=== PATIENT | female | born 1940 | race African-American/Black ===

== ENCOUNTER → 2016-06-22 | Outpatient (CLI) | payer MEDICARE ==
[2016-06-22 10:14] LABS: Anisocytosis Slight; Basophils % (A) 0 %; CH 24.2; CHCM 29.7; Eosinophils # (A) 0.2 k/uL (0-0.7); Eosinophils % (A) 4 %; HGB 11.6 gm/dL (11.4-16.0); Hypochromasia Marked; Luc # (Auto) 0.14; Luc % (Auto) 3; Lymphocytes # (A) 1.5 k/uL (1.0-4.8); Lymphocytes % (A) 29 %; MCH 24.4 pg (25.0-35.0); MCHC 29.8 g/dL (31.0-37.0); MCV 81.8 fL (80.0-100.0); Mean Platelet Volume 6.2; Monocytes # (A) 0.2 k/uL (0-1.0); Monocytes % (A) 5 %; Neutrophils # (A) 3.2 k/uL (1.3-7.7); Neutrophils % (A) 60 %; RBC 4.77 m/uL (3.80-5.40); WBC 5.3 k/uL (3.8-10.6); WBC (Perox) 5.79
[2016-06-22 10:31] LABS: ALT 21 U/L (9-52); AST 24 U/L (14-36); Alkaline Phosphatase 83 U/L (38-126); Anion Gap 12 mmol/L; Blood Urea Nitrogen 13 mg/dL (7-17); Calcium 9.3 mg/dL (8.4-10.2); Carbon Dioxide 23 mmol/L (22-30); Chloride 105 mmol/L (98-107); Cholesterol 268 mg/dL (<200); Glucose 85 mg/dL (74-99); HDL Cholesterol 90 mg/dL (40-60); Non-African American GFR(MDRD) >60 (>60 ml/min/1.73 sqM); Potassium 4.1 mmol/L (3.5-5.1); Sodium 140 mmol/L (137-145); Total Bilirubin 0.6 mg/dL (0.2-1.3); Total Protein 7.5 g/dL (6.3-8.2); Triglycerides 106 mg/dL (<150)
== END | disposition home or self-care (01) ==
LOC: LABWHC1 09:39
PROVIDERS: ATTEND Internal Medicine
DX: D64.9 Anemia, unspecified (principal); E87.8 Other disorders of electrolyte and fluid balance, not elsewhere classified; R79.9 Abnormal finding of blood chemistry, unspecified; E78.4 Other hyperlipidemia
CPT/HCPCS: 36415; 80053; 80061; 85025

== ENCOUNTER → 2017-11-02 | Outpatient (CLI) | payer MEDICARE ==
[2017-11-02 11:00] LABS: Anisocytosis Slight; HCT 38.7 % (34.0-46.0); HGB 11.9 gm/dL (11.4-16.0); Hypochromasia Marked; MCH 24.4 pg (25.0-35.0); MCHC 30.7 g/dL (31.0-37.0); MCV 79.6 fL (80.0-100.0); Mean Platelet Volume 6.6; Microcytosis Slight; Platelet Count 264 k/uL (150-450); RBC 4.87 m/uL (3.80-5.40); RDW 17.1 % (11.5-15.5); WBC 5.8 k/uL (3.8-10.6)
[2017-11-02 11:51] LABS: Anion Gap 9 mmol/L; Blood Urea Nitrogen 15 mg/dL (7-17); Carbon Dioxide 26 mmol/L (22-30); Chloride 103 mmol/L (98-107); Cholesterol 253 mg/dL (<200); Glucose 84 mg/dL (74-99); HDL Cholesterol 90 mg/dL (40-60); LDL Cholesterol,Calculated 142 mg/dL (0-99); Potassium 4.6 mmol/L (3.5-5.1); Sodium 138 mmol/L (137-145); Triglycerides 105 mg/dL (<150)
== END | disposition home or self-care (01) ==
LOC: LABWHC1 10:04
PROVIDERS: ATTEND Internal Medicine
DX: E78.5 Hyperlipidemia, unspecified (principal); E87.8 Other disorders of electrolyte and fluid balance, not elsewhere classified; D64.9 Anemia, unspecified
CPT/HCPCS: 36415; 80048; 80061; 85027

== ENCOUNTER 2019-04-02 12:29 | Emergency (ER) | payer MEDICARE ==
[2019-04-02] MEDS ORDERED: KETOROLAC 30 MG/ML 1 ML VIAL IVP STA ×2 (13:09→14:36)
[2019-04-02] MEDS ORDERED: DIAZEPAM 5 MG/ML 2 ML INJ IVP STA (13:10)
--- NOTE | 2019-04-02 13:12 | ED ---
General Adult HPI - General Chief complaint: Neck Pain/Injury Stated complaint: Neck and shoulder spasms Time Seen by Provider: 04/02/19 12:37 Source: patient, RN notes reviewed Mode of arrival: ambulatory Limitations: no limitations - History of Present Illness Initial comments: 79-year-old female presenting for evaluation of bilateral shoulder pain. Patient has had similar symptoms in the past which resolved with anti- inflammatories. She reports mild associated occipital headache which is resolved at this time. Pain is been bilateral although it seems to be worse on the right. No fever or chills. No central chest pain. No abdominal pain. No vomiting or diarrhea. No cough or fever. She reports pain worse with movement in the right neck and shoulder. She has taken Tylenol for her pain with minimal improvement. - Related Data Home Medications Medication Instructions Recorded Confirmed Albuterol Sulfate [Proair Hfa] 1 - 2 puff INHALATION RT-Q6H PRN 04/03/16 04/03/16 Ascorbic Acid [Vitamin C] 1,000 mg PO DAILY 04/03/16 04/03/16 Cyclobenzaprine HCl 5 mg PO BID PRN 04/03/16 04/03/16 Fluticasone/Salmeterol [Advair 1 puff INHALATION RT-BID PRN 04/03/16 04/03/16 100-50 Diskus] HYDROcodone/APAP 5-325MG [[place] 1 tab PO Q6HR PRN 04/03/16 04/03/16 5-325] Indapamide [Lozol] 2.5 mg PO DAILY PRN 04/03/16 04/03/16 Magnesium 200 mg PO DAILY 04/03/16 04/03/16 Multivit-Min/FA/Lycopen/Lutein 1 tab PO DAILY 04/03/16 04/03/16 [Centrum Silver Tablet] [place]-3 Fatty Acids [[place]-3] 1,000 mg PO DAILY 04/03/16 04/03/16 Previous Rx's Medication Instructions Recorded predniSONE 30 mg PO DAILY #7 tab 04/02/19 Allergies Allergy/AdvReac Type Severity Reaction Status Date / Time aspirin Allergy Wheezing Verified 04/03/16 04:25 Review of Systems ROS Statement: Those systems with pertinent positive or pertinent negative responses have been documented in the HPI. ROS Other: All systems not noted in ROS Statement are negative. Past Medical History Past Medical History: Asthma, Heart Failure, Hyperlipidemia, Hypertension History of Any Multi-Drug Resistant Organisms: None Reported Past Surgical History: Hernia Repair, Hysterectomy, Tonsillectomy Past Psychological History: No Psychological Hx Reported Smoking Status: Never smoker Past Alcohol Use History: None Reported Past Drug Use History: None Reported General Exam Limitations: no limitations General appearance: alert, in no apparent distress Head exam: Present: atraumatic, normocephalic Eye exam: Present: normal appearance, PERRL, EOMI ENT exam: Present: normal exam Neck exam: Present: tenderness, full ROM (Decreased range of motion, right trapezius and cervical paraspinal muscles) Respiratory exam: Present: normal lung sounds bilaterally. Absent: respiratory distress, wheezes Cardiovascular Exam: Present: regular rate, normal rhythm GI/Abdominal exam: Present: soft. Absent: distended, tenderness, guarding Extremities exam: Present: normal inspection, full ROM, other (Distal pulses intact, 2+ and symmetric) Back exam: Present: normal inspection, full ROM. Absent: tenderness Neurological exam: Present: alert, oriented X3, CN II-XII intact. Absent: motor sensory deficit Psychiatric exam: Present: normal affect, normal mood Skin exam: Present: warm, dry, intact. Absent: cyanosis, diaphoretic Course Vital Signs 04/02/19 04/02/19 12:54 14:51 Temperature 97.4 F L Pulse Rate 83 70 Respiratory 19 18 Rate Blood Pressure 122/78 135/86 O2 Sat by Pulse 98 98 Oximetry EKG Findings - EKG Comments: EKG Findings:: EKG: Normal sinus rhythm, rate of 74, UT interval 140, QRS duration 82, QTC 448, no ST segment elevation. Medical Decision Making - Medical Decision Making 79-year-old female presenting with headache and bilateral shoulder pain. Headache is resolved at the time my evaluation. Symptoms have been present for approximately 5 days. Workup is initiated for both inflammatory as well as atypical chest pain workup. She has normal CBC, normal CMP, negative troponin. She has a C-spine which shows diffuse degenerative she's, no acute process. She has an ESR of 87 which is significantly elevated. This is discussed with on-call rheumatology, concern for Rhinitis and Polymyalgia Rheumatica. Recommends Oral Steroids and Outpatient Follow-Up. Patient Has No Vision Changes, No Current Headache. Findings Are Consistent with Polymyalgia Rheumatica. - Lab Data Result diagrams: 04/02/19 13:10 04/02/19 13:10 Lab Results 04/02/19 04/02/19 04/02/19 Range/Units 13:10 13:10 13:10 WBC 9.2 (3.8-10.6) k/uL RBC 4.82 (3.80-5.40) m/uL Hgb 11.6 (11.4-16.0) gm/dL Hct 36.4 (34.0-46.0) % MCV 75.5 L (80.0-100.0) fL MCH 24.0 L (25.0-35.0) pg MCHC 31.8 (31.0-37.0) g/dL RDW 16.1 H (11.5-15.5) % Plt Count 318 (150-450) k/uL Neutrophils % 69 % Lymphocytes % 18 % Monocytes % 5 % Eosinophils % 4 % Basophils % 0 % Neutrophils # 6.4 (1.3-7.7) k/uL Lymphocytes # 1.7 (1.0-4.8) k/uL Monocytes # 0.5 (0-1.0) k/uL Eosinophils # 0.4 (0-0.7) k/uL Basophils # 0.0 (0-0.2) k/uL Anisocytosis Slight Microcytosis Slight ESR 87 H (0-20) mm/hr PT 9.9 (9.0-12.0) sec INR 0.9 (<1.2) APTT 24.8 (22.0-30.0) sec Sodium 138 (137-145) mmol/L Potassium 3.3 L (3.5-5.1) mmol/L Chloride 102 (98-107) mmol/L Carbon Dioxide 26 (22-30) mmol/L Anion Gap 10 mmol/L BUN 16 (7-17) mg/dL Creatinine 0.67 (0.52-1.04) mg/dL Est GFR (CKD-EPI)AfAm >90 (>60 ml/min/1.73 sqM) Est GFR (CKD-EPI)NonAf 83 (>60 ml/min/1.73 sqM) Glucose 113 H (74-99) mg/dL Calcium 9.8 (8.4-10.2) mg/dL Magnesium 1.5 L (1.6-2.3) mg/dL Total Bilirubin 0.3 (0.2-1.3) mg/dL AST 32 (14-36) U/L ALT 26 (9-52) U/L Alkaline Phosphatase 92 (38-126) U/L Troponin I (0.000-0.034) ng/mL Total Protein 8.0 (6.3-8.2) g/dL Albumin 4.3 (3.5-5.0) g/dL 04/02/19 Range/Units 13:10 WBC (3.8-10.6) k/uL RBC (3.80-5.40) m/uL Hgb (11.4-16.0) gm/dL Hct (34.0-46.0) % MCV (80.0-100.0) fL MCH (25.0-35.0) pg MCHC (31.0-37.0) g/dL RDW (11.5-15.5) % Plt Count (150-450) k/uL Neutrophils % % Lymphocytes % % Monocytes % % Eosinophils % % Basophils % % Neutrophils # (1.3-7.7) k/uL Lymphocytes # (1.0-4.8) k/uL Monocytes # (0-1.0) k/uL Eosinophils # (0-0.7) k/uL Basophils # (0-0.2) k/uL Anisocytosis Microcytosis ESR (0-20) mm/hr PT (9.0-12.0) sec INR (<1.2) APTT (22.0-30.0) sec Sodium (137-145) mmol/L Potassium (3.5-5.1) mmol/L Chloride (98-107) mmol/L Carbon Dioxide (22-30) mmol/L Anion Gap mmol/L BUN (7-17) mg/dL Creatinine (0.52-1.04) mg/dL Est GFR (CKD-EPI)AfAm (>60 ml/min/1.73 sqM) Est GFR (CKD-EPI)NonAf (>60 ml/min/1.73 sqM) Glucose (74-99) mg/dL Calcium (8.4-10.2) mg/dL Magnesium (1.6-2.3) mg/dL Total Bilirubin (0.2-1.3) mg/dL AST (14-36) U/L ALT (9-52) U/L Alkaline Phosphatase (38-126) U/L Troponin I <0.012 (0.000-0.034) ng/mL Total Protein (6.3-8.2) g/dL Albumin (3.5-5.0) g/dL Disposition Clinical Impression: Polymyalgia rheumatica Disposition: HOME SELF-CARE Condition: Fair Instructions (If sedation given, give patient instructions): Polymyalgia Rheumatica (ED) Prescriptions: predniSONE 30 mg PO DAILY #7 tab Is patient prescribed a controlled substance at d/c from ED?: No Referrals: None,Stated [Primary Care Provider] - 1-2 days Freeman Bolden MD [STAFF PHYSICIAN] - 1-2 days Gloria Greenberg MD [REFERRING] - 1-2 days Ivonne Swann MD [STAFF PHYSICIAN] - 1-2 days Xochilt Gonsalves MD [STAFF PHYSICIAN] - 1-2 days Time of Disposition: 15:21
[2019-04-02 13:32] LABS: Anisocytosis Slight; Basophils % (A) 0 %; Eosinophils # (A) 0.4 k/uL (0-0.7); Eosinophils % (A) 4 %; HCT 36.4 % (34.0-46.0); HGB 11.6 gm/dL (11.4-16.0); Lymphocytes # (A) 1.7 k/uL (1.0-4.8); Lymphocytes % (A) 18 %; MCHC 31.8 g/dL (31.0-37.0); MCV 75.5 fL (80.0-100.0); Mean Platelet Volume 5.9; Microcytosis Slight; Monocytes # (A) 0.5 k/uL (0-1.0); Monocytes % (A) 5 %; Neutrophils # (A) 6.4 k/uL (1.3-7.7); Neutrophils % (A) 69 %; Platelet Count 318 k/uL (150-450); RBC 4.82 m/uL (3.80-5.40); RDW 16.1 % (11.5-15.5); WBC 9.2 k/uL (3.8-10.6)
[2019-04-02 13:40] LABS: ALT 26 U/L (9-52); AST 32 U/L (14-36); African American GFR (CKD) >90 (>60 ml/min/1.73 sqM); Albumin 4.3 g/dL (3.5-5.0); Alkaline Phosphatase 92 U/L (38-126); Anion Gap 10 mmol/L; Blood Urea Nitrogen 16 mg/dL (7-17); Calcium 9.8 mg/dL (8.4-10.2); Carbon Dioxide 26 mmol/L (22-30); Chloride 102 mmol/L (98-107); Glucose 113 mg/dL (74-99); Magnesium 1.5 mg/dL (1.6-2.3); Non-African American GFR(CKD) 83 (>60 ml/min/1.73 sqM); Potassium 3.3 mmol/L (3.5-5.1); Sodium 138 mmol/L (137-145); Total Bilirubin 0.3 mg/dL (0.2-1.3)
[2019-04-02 13:46] LABS: INR 0.9 (<1.2); Partial Thromboplastin Time 24.8 sec (22.0-30.0); Prothrombin Time 9.9 sec (9.0-12.0)
[2019-04-02 14:21] LABS: Erythrocyte Sedimentation Rate 87 mm/hr (0-20)
--- NOTE | 2019-04-02 14:33 | CT ---
EXAMINATION TYPE: CT cervical spine wo con DATE OF EXAM: 04/02/2019 COMPARISON: None HISTORY: Neck and shoulder pain with muscle spasms per patient, without injury CT DLP: [address] of the cervical spine was performed with bone and soft tissue window settings submitted . Coronal and sagittal reconstruction is obtained. There is normal alignment and prevertebral soft tissues. C2-3: Within normal limits. C3-4: Severe degenerative disc space narrowing and vacuum disc. Posterior disc bulge with partially e ncapsulating spur resulting in disc endplate complex with effacement of the ventral thecal sac. No ev idence for central stenosis at this time. Mild bilateral foraminal encroachment identified. No disc h erniation. C4-5: Moderate degenerative disc space narrowing. Posterior disc bulge. Mild effacement ventral theca l sac. No evidence for central stenosis or disc herniation. Mild bilateral foraminal encroachment. C5-6: Moderate degenerative disc space narrowing. Posterior disc bulge. Mild effacement ventral theca l sac. No evidence for central stenosis or disc herniation. Mild to moderate bilateral foraminal encr oachment. C6-7:Moderate degenerative disc space narrowing. Posterior disc bulge. Mild effacement ventral thecal sac. No evidence for central stenosis or disc herniation. Mild bilateral foraminal encroachment. C7-T1: Within normal limits. There is no evidence for fracture. Scattered ventral spondylosis. No evidence of malalignment. IMPRESSION: 1. Multilevel lumbar degenerative disc disease with disc bulging and effacement ventral thecal sac ho wever the spinal canal is capacious without evidence for central stenosis or disc herniation. Bilater al foraminal encroachment as outlined above.
[2019-04-02] MEDS ORDERED: methylPREDNISolone SOD SUCCI 125 MG/2 ML VIAL IV STA (14:49)
[2019-04-02 14:52] VITALS: RESP 18
[2019-04-02 15:38] VITALS: BP 153/80; PULSE 75; TEMP 97.3
== END 2019-04-02 15:32 | disposition home or self-care (01) ==
LOC: EC 12:29
DX: M35.3 Polymyalgia rheumatica (principal); M47.812 Spondylosis without myelopathy or radiculopathy, cervical region; R70.0 Elevated erythrocyte sedimentation rate; J45.909 Unspecified asthma, uncomplicated; I11.0 Hypertensive heart disease with heart failure; I50.9 Heart failure, unspecified; Z88.6 Allergy status to analgesic agent; Z79.51 Long term (current) use of inhaled steroids; Z79.899 Other long term (current) drug therapy
CPT/HCPCS: 36415; 93005; 80053; 85652; 83735; 84484; 85025; 85610; 85730; 72125; 99284; 96374; 96375 ×2; 96376; J2930; J3360; J1885

== ENCOUNTER 2019-06-23 22:41 | Emergency (ER) | payer MEDICARE ==
[2019-06-23 22:46] VITALS: TEMP 98.1
[2019-06-23] MEDS ORDERED: KETOROLAC 30 MG/ML 1 ML VIAL IM STA (23:20)
--- NOTE | 2019-06-23 23:47 | XR ---
EXAMINATION TYPE: XR ankle complete LT DATE OF EXAM: 06/23/2019 COMPARISON: NONE HISTORY: Ankle pain TECHNIQUE: 3 views FINDINGS: There is soft tissue swelling around the ankle. There are plantar and Achilles calcaneal sp urs. Ankle mortise is anatomic. I see no fracture. IMPRESSION: Soft tissue swelling. No fracture seen.
--- NOTE | 2019-06-23 23:49 | XR ---
EXAMINATION TYPE: XR foot complete LT DATE OF EXAM: 06/23/2019 COMPARISON: NONE HISTORY: Foot pain TECHNIQUE: 3 views FINDINGS: There is plantar calcaneal spurring. Metatarsals are intact. I see no fracture nor dislocat ion. There are no erosions. There is spurring at the first MP joint. IMPRESSION: Degenerative changes. No fracture seen.
[2019-06-24] MEDS ORDERED: ACET/COD 300 MG/30 MG STARTER PACK 6 TAB BTL PO STA (00:12)
--- NOTE | 2019-06-24 00:12 | ED ---
Lower Extremity Injury HPI - General Chief Complaint: Extremity Injury, Lower Stated Complaint: L Foot Pain Time Seen by Provider: 06/23/19 22:48 Source: patient Mode of arrival: wheelchair Limitations: no limitations - History of Present Illness Initial Comments: 79-year-old female patient presents to the emergency department today for evaluation of left foot pain. Patient states that for the last few days she has been having pain to the braxton after an injury from her grandchild. States that tonight she started to have pain in the dorsal aspect of the left foot. Patient states they have foot is somewhat swollen. She denies any injury to the foot specifically. She denies any numbness or tingling. Denies any fever or chills. States she is working with a spa manager for her arthritis, she is currently on a tapering dose of prednisone she just switched to the 0.5 tablet dosing amount when the pain started. States she did take 2 Tylenol earlier which did seem to help somewhat. She denies any other areas of pain or injury. Patient denies any headache, neck pain, back pain, chest pain, shortness of breath, dizziness, weakness, abdominal pain, nausea, vomiting, or difficulties with bowel movements or urination. - Related Data Home Medications Medication Instructions Recorded Confirmed Albuterol Sulfate [Proair Hfa] 1 - 2 puff INHALATION RT-Q6H PRN 04/03/16 04/03/16 Ascorbic Acid [Vitamin C] 1,000 mg PO DAILY 04/03/16 04/03/16 Cyclobenzaprine HCl 5 mg PO BID PRN 04/03/16 04/03/16 Fluticasone/Salmeterol [Advair 1 puff INHALATION RT-BID PRN 04/03/16 04/03/16 100-50 Diskus] HYDROcodone/APAP 5-325MG [[place] 1 tab PO Q6HR PRN 04/03/16 04/03/16 5-325] Indapamide [Lozol] 2.5 mg PO DAILY PRN 04/03/16 04/03/16 Magnesium 200 mg PO DAILY 04/03/16 04/03/16 Multivit-Min/FA/Lycopen/Lutein 1 tab PO DAILY 04/03/16 04/03/16 [Centrum Silver Tablet] [place]-3 Fatty Acids [[place]-3] 1,000 mg PO DAILY 04/03/16 04/03/16 Previous Rx's Medication Instructions Recorded predniSONE 30 mg PO DAILY #7 tab 04/02/19 predniSONE 30 mg PO DAILY 7 Days #7 tab 04/02/19 Allergies Allergy/AdvReac Type Severity Reaction Status Date / Time aspirin Allergy Wheezing Verified 06/23/19 22:46 Review of Systems ROS Statement: Those systems with pertinent positive or pertinent negative responses have been documented in the HPI. ROS Other: All systems not noted in ROS Statement are negative. Past Medical History Past Medical History: Asthma, Heart Failure, Hyperlipidemia, Hypertension History of Any Multi-Drug Resistant Organisms: None Reported Past Surgical History: Hernia Repair, Hysterectomy, Tonsillectomy Past Psychological History: No Psychological Hx Reported Smoking Status: Never smoker Past Alcohol Use History: None Reported Past Drug Use History: None Reported General Exam Limitations: no limitations General appearance: alert, in no apparent distress, other (This is a well-developed, well-nourished elderly female patient in no acute distress. Vital signs upon presentation are temperature 98.1F, pulse 83, respirations 20, blood pressure 111/75, pulse ox 100% on room air.) Eye exam: Present: normal appearance, PERRL, EOMI. Absent: scleral icterus, conjunctival injection, periorbital swelling ENT exam: Present: normal exam, normal oropharynx, mucous membranes moist Respiratory exam: Present: normal lung sounds bilaterally. Absent: respiratory distress, wheezes, rales, rhonchi, stridor Cardiovascular Exam: Present: regular rate, normal rhythm, normal heart sounds. Absent: systolic murmur, diastolic murmur, rubs, gallop, clicks Extremities exam: Present: normal inspection, full ROM, tenderness (Dorsal aspect of the left foot), normal capillary refill, other (There is some mild soft tissue swelling surrounding left ankle. There is no erythema. There is some tenderness over the dorsal aspect of the left foot more towards the toes. No swelling to this region. No erythema. Skin is warm and dry. Cap refills less than 3 seconds. Pedal and posttibial pulses 2+ and equal bilaterally.). Absent: pedal edema, joint swelling, calf tenderness Neurological exam: Present: alert, oriented X3, CN II-XII intact Psychiatric exam: Present: normal affect, normal mood Skin exam: Present: warm, dry, intact, normal color. Absent: rash Course Vital Signs 06/23/19 22:43 Temperature 98.1 F Pulse Rate 83 Respiratory 20 Rate Blood Pressure 111/75 O2 Sat by Pulse 100 Oximetry Medical Decision Making - Medical Decision Making 79-year-old female patient presents to the emergency department today for evaluation of pain to the dorsal aspect of the left foot. Physical examination reveals mild soft tissue swelling surrounding the ankle. There is no erythema redness indicating infection. She is afebrile. X-rays of the foot and ankle are negative. We did discuss possibility of a sprain. She'll be placed in an Sriram wrap instructed to follow-up with the mission support specialist or her primary care physician for recheck. She does have a walker at home she is instructed to use this to assist with ambulation. Return parameters were discussed in detail. She verbalizes understanding and agrees with this plan. - Radiology Data Radiology results: report reviewed, image reviewed 3 views of the left foot her to breathe. Reviewed in its entirety. Impression by Dr. Trujillo shows degenerative changes. No fracture seen 3 views of the left ankle are obtained. Report was reviewed in its entirety. Impression by Dr. Trujillo shows soft tissue swelling. No fracture seen. Disposition Clinical Impression: Left foot pain Disposition: HOME SELF-CARE Condition: Good Instructions (If sedation given, give patient instructions): Foot Sprain (ED) Additional Instructions: Rest, ice, elevate the left foot. Take medication as needed for pain control. Follow-up with the primary care physician for recheck in 1-2 days. Return to the emergency department immediately for any new, worsening, or concerning symptoms. Is patient prescribed a controlled substance at d/c from ED?: No Referrals: None,Stated [Primary Care Provider] - 1-2 days Time of Disposition: 00:12
[2019-06-24 00:38] VITALS: BP 120/72; PULSE 69; RESP 16
== END 2019-06-24 00:20 | disposition home or self-care (01) ==
LOC: EC 22:41
DX: M79.672 Pain in left foot (principal); J45.909 Unspecified asthma, uncomplicated; I11.0 Hypertensive heart disease with heart failure; I50.9 Heart failure, unspecified; E78.5 Hyperlipidemia, unspecified; Z79.51 Long term (current) use of inhaled steroids; Z79.899 Other long term (current) drug therapy; Z88.6 Allergy status to analgesic agent
CPT/HCPCS: 73610; 73630; 96372; 99283; J1885

== ENCOUNTER 2019-08-26 07:55 | Emergency (ER) | payer MEDICARE ==
[2019-08-26 08:02] VITALS: PULSE 82; RESP 18; TEMP 98.3
[2019-08-26] MEDS ORDERED: ORPHENADRINE 30 MG/ML 2 ML VIAL IVP STA (08:24)
[2019-08-26] MEDS ORDERED: DEXAMETHASONE SOD PHOSPHATE 10 MG/ML 1 ML VIAL IV STA (08:24)
--- NOTE | 2019-08-26 08:24 | ED ---
Back Pain HPI - General Chief Complaint: Back Pain/Injury Stated Complaint: back & neck pain Time Seen by Provider: 08/26/19 08:11 Source: patient, RN notes reviewed, old records reviewed Limitations: physical limitation - History of Present Illness Initial Comments: is an 79-year-old female with history of polymyalgia rheumatica. She presents to the emergency department with worsening neck and upper back pain. She was seen in March for similar complaints emergency department. She does follow with credit control manager Dr. Gonsalves. She's been off her steroids for the past month and a half. Patient states that she has worsening pain with movement. Denies any fall or trauma. Patient states that she has no other significant complaints. - Related Data Home Medications Medication Instructions Recorded Confirmed Albuterol Sulfate [Proair Hfa] 1 - 2 puff INHALATION RT-QID PRN 04/03/16 08/26/19 Indapamide [Lozol] 2.5 mg PO DAILY 04/03/16 08/26/19 [place]-3 Fatty Acids [[place]-3] 1,000 mg PO DAILY 04/03/16 08/26/19 Fluticasone Propion/Salmeterol 1 puff PO RT-BID 08/26/19 08/26/19 [[place] 100-50 Inhub] Multivitamins, Thera [Multivitamin 1 tab PO DAILY 08/26/19 08/26/19 (formulary)] Potassium Chloride [Klor-Con 20] 20 meq PO DAILY 08/26/19 08/26/19 Turmeric Root Extract [Turmeric] 500 mg PO DAILY 08/26/19 08/26/19 amLODIPine [Norvasc] 10 mg PO DAILY 08/26/19 08/26/19 Previous Rx's Medication Instructions Recorded Cyclobenzaprine [Flexeril] 10 mg PO TID #12 tab 08/26/19 predniSONE 10 mg PO DAILY #15 tab 08/26/19 Allergies Allergy/AdvReac Type Severity Reaction Status Date / Time aspirin Allergy Wheezing Verified 08/26/19 08:51 Review of Systems ROS Statement: Those systems with pertinent positive or pertinent negative responses have been documented in the HPI. ROS Other: All systems not noted in ROS Statement are negative. Past Medical History Past Medical History: Asthma, Heart Failure, Hyperlipidemia, Hypertension Additional Past Medical History / Comment(s): back and neck pain History of Any Multi-Drug Resistant Organisms: None Reported Past Surgical History: Hernia Repair, Hysterectomy, Tonsillectomy Past Psychological History: No Psychological Hx Reported Smoking Status: Never smoker Past Alcohol Use History: None Reported Past Drug Use History: None Reported General Exam Limitations: physical limitation General appearance: alert, in no apparent distress Head exam: Present: atraumatic, normocephalic, normal inspection Eye exam: Present: normal appearance, PERRL, EOMI. Absent: scleral icterus, conjunctival injection, periorbital swelling ENT exam: Present: normal exam, mucous membranes moist Neck exam: Present: normal inspection, other (tenderness over latissimus dorsi ). Absent: tenderness, meningismus, lymphadenopathy Respiratory exam: Present: normal lung sounds bilaterally. Absent: respiratory distress, wheezes, rales, rhonchi, stridor Cardiovascular Exam: Present: regular rate, normal rhythm, normal heart sounds. Absent: systolic murmur, diastolic murmur, rubs, gallop, clicks GI/Abdominal exam: Present: soft, normal bowel sounds. Absent: distended, tenderness, guarding, rebound, rigid Extremities exam: Present: normal inspection, full ROM, normal capillary refill. Absent: tenderness, pedal edema, joint swelling, calf tenderness Back exam: Present: normal inspection Neurological exam: Present: alert, oriented X3, CN II-XII intact, normal gait Psychiatric exam: Present: normal affect, normal mood Skin exam: Present: warm, dry, intact, normal color. Absent: rash Course Vital Signs 08/26/19 07:59 Temperature 98.3 F Pulse Rate 82 Respiratory 18 Rate Blood Pressure 119/75 O2 Sat by Pulse 99 Oximetry - Reevaluation(s) Reevaluation #1: 08/26/19 09:33 Patient was reevaluated this time resting comfortably in bed. She reports that she feels less stiff and is feeling somewhat better at this time. I discussed the case with patient's son whom is a physician, and informed of lab results and the Patient should follow-up with her credit control manager. Medical Decision Making - Medical Decision Making 79-year-old female presents emergency room today with complaints of worsening neck muscle spasm upper back pain. Worsening over the past 2 days. Worse with movement. She has a history of polymyalgia rheumatica. At this time Patient elevated CRP. She does follow with Dr. Gonsalves. She was given 80 Decadron and Norflex and reports she is feeling better at this time. CBC was unremarkable and EKG shows no acute changes. Patient is will be started on a short course of steroids anti-inflammatory medication. She is given a Tylenol 3 starter pack. Discussed return parameters and close PCP and rheumatology follow-up. - Lab Data Result diagrams: 08/26/19 08:36 08/26/19 08:36 Lab Results 08/26/19 08/26/19 08/26/19 Range/Units 08:36 08:36 08:36 WBC 10.5 (3.8-10.6) k/uL RBC 4.44 (3.80-5.40) m/uL Hgb 11.2 L (11.4-16.0) gm/dL Hct 34.2 (34.0-46.0) % MCV 77.1 L (80.0-100.0) fL MCH 25.3 (25.0-35.0) pg MCHC 32.8 (31.0-37.0) g/dL RDW 15.5 (11.5-15.5) % Plt Count 296 (150-450) k/uL Neutrophils % 85 % Lymphocytes % 8 % Monocytes % 5 % Eosinophils % 1 % Basophils % 0 % Neutrophils # 9.0 H (1.3-7.7) k/uL Lymphocytes # 0.8 L (1.0-4.8) k/uL Monocytes # 0.5 (0-1.0) k/uL Eosinophils # 0.1 (0-0.7) k/uL Basophils # 0.0 (0-0.2) k/uL Hypochromasia Slight Microcytosis Slight Sodium 134 L (137-145) mmol/L Potassium 3.5 (3.5-5.1) mmol/L Chloride 98 (98-107) mmol/L Carbon Dioxide 26 (22-30) mmol/L Anion Gap 10 mmol/L BUN 16 (7-17) mg/dL Creatinine 0.67 (0.52-1.04) mg/dL Est GFR (CKD-EPI)AfAm >90 (>60 ml/min/1.73 sqM) Est GFR (CKD-EPI)NonAf 83 (>60 ml/min/1.73 sqM) Glucose 111 H (74-99) mg/dL Calcium 9.3 (8.4-10.2) mg/dL Total Bilirubin 0.4 (0.2-1.3) mg/dL AST 23 (14-36) U/L ALT 11 (4-34) U/L Alkaline Phosphatase 76 (38-126) U/L C-Reactive Protein 48.9 H (<10.0) mg/L Total Protein 7.3 (6.3-8.2) g/dL Albumin 3.9 (3.5-5.0) g/dL Urine Color Yellow Urine Appearance Clear (Clear) Urine pH 7.0 (5.0-8.0) Ur Specific [place] 1.013 (1.001-1.035) Urine Protein Negative (Negative) Urine Glucose (UA) Negative (Negative) Urine Ketones Negative (Negative) Urine Blood Negative (Negative) Urine Nitrite Positive H (Negative) Urine Bilirubin Negative (Negative) Urine Urobilinogen <2.0 (<2.0) mg/dL Ur Leukocyte Esterase Trace H (Negative) Urine WBC 5 (0-5) /hpf Ur Squamous Epith Cells <1 (0-4) /hpf Amorphous Sediment Occasional H (None) /hpf Urine Mucus Rare H (None) /hpf - Radiology Data Radiology results: report reviewed EKG performed a 44 shows normal sinus rhythm nonspecific T-wave rebound. Prolonged QT. Ventricular rate of 85 bpm. Normal is 150 ms. Respirations 84 ms. QT QTc is 426/506 most seconds. Disposition Clinical Impression: Thoracic back pain, Neck muscle spasm, Myalgia and myositis Disposition: HOME SELF-CARE Condition: Good Instructions (If sedation given, give patient instructions): Musculoskeletal Pain (ED) Additional Instructions: Patient has a follow-up with your primary care doctor and rheumatology. Take the medications as prescribed. Return to the ED if any alarming signs or symptoms occur. Prescriptions: Cyclobenzaprine [Flexeril] 10 mg PO TID #12 tab predniSONE 10 mg PO DAILY #15 tab Is patient prescribed a controlled substance at d/c from ED?: No Referrals: Nicole Guzman MD [Primary Care Provider] - 1-2 days Time of Disposition: 09:36
[2019-08-26 08:46] LABS: Basophils % (A) 0 %; Eosinophils # (A) 0.1 k/uL (0-0.7); Eosinophils % (A) 1 %; HCT 34.2 % (34.0-46.0); HGB 11.2 gm/dL (11.4-16.0); Hypochromasia Slight; Lymphocytes # (A) 0.8 k/uL (1.0-4.8); Lymphocytes % (A) 8 %; MCH 25.3 pg (25.0-35.0); MCHC 32.8 g/dL (31.0-37.0); MCV 77.1 fL (80.0-100.0); Mean Platelet Volume 6.8; Microcytosis Slight; Monocytes # (A) 0.5 k/uL (0-1.0); Monocytes % (A) 5 %; Neutrophils % (A) 85 %; Platelet Count 296 k/uL (150-450); RBC 4.44 m/uL (3.80-5.40); RDW 15.5 % (11.5-15.5); WBC 10.5 k/uL (3.8-10.6)
[2019-08-26 08:55] LABS: Amorphous Sediment,Urine Occasional /hpf; Appearance,Urine Clear (Clear); Bilirubin,Urine Negative (Negative); Blood,Urine Negative (Negative); Color,Urine Yellow; Glucose,Urine (UA) Negative (Negative); Ketones,Urine Negative (Negative); Leukocyte Esterase,Urine Trace (Negative); Mucus,Urine Rare /hpf; Nitrite,Urine Positive (Negative); Protein,Urine Negative (Negative); Specific Gravity,Urine 1.013 (1.001-1.035); Squamous Epithelial Cell,Urine <1 /hpf (0-4); Urobilinogen,Urine <2.0 mg/dL (<2.0); WBC,Urine 5 /hpf (0-5)
[2019-08-26] MEDS ORDERED: ACET/COD 300 MG/30 MG STARTER PACK 6 TAB BTL PO STA (09:00)
[2019-08-26 09:12] LABS: ALT 11 U/L (4-34); AST 23 U/L (14-36); African American GFR (CKD) >90 (>60 ml/min/1.73 sqM); Albumin 3.9 g/dL (3.5-5.0); Alkaline Phosphatase 76 U/L (38-126); Anion Gap 10 mmol/L; Blood Urea Nitrogen 16 mg/dL (7-17); C Reactive Protein 48.9 mg/L (<10.0); Calcium 9.3 mg/dL (8.4-10.2); Carbon Dioxide 26 mmol/L (22-30); Chloride 98 mmol/L (98-107); Glucose 111 mg/dL (74-99); Non-African American GFR(CKD) 83 (>60 ml/min/1.73 sqM); Potassium 3.5 mmol/L (3.5-5.1); Sodium 134 mmol/L (137-145); Total Bilirubin 0.4 mg/dL (0.2-1.3); Total Protein 7.3 g/dL (6.3-8.2)
[2019-08-26 09:44] LABS: Erythrocyte Sedimentation Rate 99 mm/hr (0-20)
[2019-08-26 09:54] VITALS: BP 118/74
== END 2019-08-26 10:02 | disposition home or self-care (01) ==
LOC: EC 07:55
DX: M54.6 Pain in thoracic spine (principal); M62.838 Other muscle spasm; M60.9 Myositis, unspecified; I11.0 Hypertensive heart disease with heart failure; I50.9 Heart failure, unspecified; J45.909 Unspecified asthma, uncomplicated; Z79.51 Long term (current) use of inhaled steroids; Z79.899 Other long term (current) drug therapy; Z88.6 Allergy status to analgesic agent
CPT/HCPCS: 36415; 93005; 80053; 85652; 85025; 86140; 81001; 87086; 99284; 96374; 96375; J1100; J2360

== ENCOUNTER → 2019-10-15 | Outpatient (CLI) | payer MEDICARE ==
--- NOTE | 2019-10-15 11:20 | XR ---
EXAMINATION TYPE: XR lumbosacral spine min 4V DATE OF EXAM: 10/15/2019 CLINICAL HISTORY: Age-related osteoporosis per order. TECHNIQUE: Frontal, lateral, and oblique images of the lumbar spine are obtained. COMPARISON: None. FINDINGS: Osseous structures are somewhat demineralized. There are 5 lumbar type vertebral bodies id entified. The lumbar spine shows satisfactory alignment without evidence of acute fracture or disloc ation. Moderate disc space narrowing L5-S1 level. Vertebral body heights and disk space heights other harmon are within normal limits. The oblique images appear within normal limits. Numerous coils from ventral wall hernia repair surgery overlie the lower abdomen and pelvis. IMPRESSION: As above.
--- NOTE | 2019-10-15 11:20 | XR ---
EXAMINATION TYPE: XR thoracic spine complete DATE OF EXAM: 10/15/2019 CLINICAL HISTORY: Age-related osteoporosis. TECHNIQUE: Frontal, lateral, and swimmer's view of thoracic spine are obtained. COMPARISON: None. FINDINGS: Demineralization is present. Thoracic spine shows slightly exaggerated thoracic kyphosis wi thout evidence of acute fracture or dislocation. Vertebral body heights are preserved. [id number]-[id number] ate multilevel disc space narrowing. Mild multilevel anterior and lateral spurring. Visualized ribs a re unremarkable bilaterally. IMPRESSION: As above.
== END | disposition home or self-care (01) ==
LOC: RADXRMAIN 10:17
PROVIDERS: ATTEND Physician Assistant
DX: M81.0 Age-related osteoporosis without current pathological fracture (principal)
CPT/HCPCS: 72072; 72110

== ENCOUNTER 2023-01-25 10:08 | Emergency (ER) | payer MEDICARE ==
[2023-01-25] MEDS ORDERED: ACETAMINOPHEN IV (For NPO) 1,000 MG in EMPTY BAG 1 BAG IVPB STA (11:30)
[2023-01-25] MEDS ORDERED: MORPHINE SULFATE 2 MG/ML SYRINGE IVP STA (11:30)
--- NOTE | 2023-01-25 11:33 | ED ---
Fever HPI - General Chief Complaint: Abdominal Pain Stated Complaint: Abd Pain Time Seen by Provider: 01/25/23 11:03 Source: patient, family, EMS, RN notes reviewed Mode of arrival: EMS Limitations: no limitations - History of Present Illness Initial Comments: This is an 82-year-old female who presents to the emergency department for a fever. She is with her son, who states that she had a colectomy at [facility] on 12/19. She has since had a colostomy bag and is residing at [facility] on [facility]. She has had a PICC line receiving total parenteral nutrition, which was started shortly after the surgery. She did at one point have an infection in the PICC line, and seemed to improve after this was removed. However, the patient proceeded to worsen again, and the PICC line had to be replaced. Last night she started to develop a fever. Her son is concerned that the PICC line is the source of infection again. However, her PCP did call the emergency department and stated that the patient was complaining of left lower quadrant pain. Patient is currently sleeping and not very interactive during conversation. She is not answering the question with regards to if she is having abdominal pain or not. Her PCP did request a computed tomography scan of the chest, abdomen, and pelvis as well as septic shock workup. MD Complaint: fever - Related Data Home Medications Medication Instructions Recorded Confirmed Albuterol Sulfate [Proair Hfa] 1 - 2 puff INHALATION RT-QID PRN 04/03/16 01/25/23 Fluticasone Propion/Salmeterol 1 puff PO RT-BID 08/26/19 01/25/23 [Wixela 100-50 Inhub] Acetaminophen Tab [Tylenol] 650 mg PO Q6H PRN 01/25/23 01/25/23 Acetaminophen [Tylenol] 650 mg PO BID 01/25/23 01/25/23 Albuterol Nebulized [Ventolin 2.5 mg INHALATION RT-Q4H PRN 01/25/23 01/25/23 Nebulized] Collagenase [Santyl Ointment] 1 applic TOPICAL DAILY PRN 01/25/23 01/25/23 Collagenase [Santyl Ointment] 1 applic TOPICAL HS 01/25/23 01/25/23 Ensure 237 ml PO DAILY 01/25/23 01/25/23 Ferrous Sulfate Oral Elixir 300 mg PO DAILY 01/25/23 01/25/23 [Feosol Liquid] Fluconazole [Diflucan] 100 mg PO DAILY 01/25/23 01/25/23 Hydrophilic Cream [Triad (Kerodex 1 applic TOPICAL DAILY PRN 01/25/23 01/25/23 geq)] Hydrophilic Cream [Triad (Kerodex 1 applic TOPICAL HS 01/25/23 01/25/23 geq)] Metoprolol Tartrate [Lopressor] 100 mg PO BID 01/25/23 01/25/23 Omeprazole [PriLOSEC] 20 mg PO DAILY@0600 01/25/23 01/25/23 Ondansetron Odt [Zofran Odt] 4 mg PO Q8H PRN 01/25/23 01/25/23 Rivaroxaban [Xarelto] 10 mg PO BID 01/25/23 01/25/23 Tpn 1 dose IV DIRECTED 01/25/23 01/25/23 droNABinol [Marinol] 2.5 mg PO DIRECTED 01/25/23 01/25/23 predniSONE 7.5 mg PO DAILY 01/25/23 01/25/23 traMADol HCl [Ultram] 50 mg PO Q6H PRN 01/25/23 01/25/23 Allergies Allergy/AdvReac Type Severity Reaction Status Date / Time aspirin Allergy Wheezing Verified 01/25/23 17:02 methocarbamol [From Robaxin] Allergy Unknown Verified 01/25/23 17:02 Review of Systems ROS Statement: Those systems with pertinent positive or pertinent negative responses have been documented in the HPI. ROS Other: All systems not noted in ROS Statement are negative. Past Medical History Past Medical History: Asthma, Heart Failure, Hyperlipidemia, Hypertension Additional Past Medical History / Comment(s): back and neck pain History of Any Multi-Drug Resistant Organisms: None Reported Past Surgical History: Hernia Repair, Hysterectomy, Tonsillectomy Past Psychological History: No Psychological Hx Reported Smoking Status: Never smoker Past Alcohol Use History: None Reported Past Drug Use History: None Reported General Exam Limitations: no limitations General appearance: alert, in no apparent distress Head exam: Present: atraumatic, normocephalic, normal inspection Respiratory exam: Present: normal lung sounds bilaterally. Absent: respiratory distress, wheezes, rales, rhonchi, stridor Cardiovascular Exam: Present: regular rate, normal rhythm, normal heart sounds. Absent: systolic murmur, diastolic murmur, rubs, gallop, clicks GI/Abdominal exam: Present: other (Colostomy bag in place. Incision is well- healing. There is no surrounding erythema, induration, or drainage. ) Neurological exam: Present: alert, oriented X3, CN II-XII intact Psychiatric exam: Present: normal affect, normal mood Course Vital Signs 01/25/23 01/25/23 01/25/23 10:43 14:23 19:50 Temperature 100.3 F H 98.7 F Pulse Rate 115 H 116 H 108 H Respiratory 16 20 16 Rate Blood Pressure 128/86 146/80 154/84 O2 Sat by Pulse 98 98 100 Oximetry Medical Decision Making - Medical Decision Making This is an 82-year-old female who presents to the emergency department for a fever and abdominal pain. Was pt. sent in by a medical professional or institution? @ -Dr. Pizarro, the patient's PCP. Did you speak to anyone other than the patient for history? @ -Her son provided the majority of the information. Did you review nursing and triage notes? @ -Yes, and I agree, it is accurate with regards to the patient's symptoms. Were old charts reviewed? @ -No Differential Diagnosis? @ -Differential Fever: Pneumonia, viral URI, endocarditis, myocarditis, pericarditis, otitis, sinusitis, peritonsillar Abscess, retropharyngeal Abscess, epiglottitis, per itonitis, appendicitis, Sveta cystitis, diverticulitis, hepatitis, colitis, UTI, PID, TOA, pyelonephritis, prostatitis, epididymitis, meningitis, encephalitis, pulmonary embolism, CVA, thyroid storm, pancreatitis, adrenal crisis, cavernous sinus thrombosis, this is not meant to be an all-inclusive list. EKG interpreted by me (3pts min.)? @ -EKG interpreted by me demonstrating the following: Sinus tachycardia. Ventricular rate 116 bpm, OH interval 121 ms, QRS duration 76 ms, QTC 377 ms. X-rays interpreted by me (1pt min.)? @ -X-ray of the left humerus obtained. My interpretation identifies no evid ence of subcutaneous gas formation. CT interpreted by me (1pt min.)? @ -CT scan of the chest/abd/pelvis obtained. My interpretation identifies no evidence of free air. U/S interpreted by me (1pt. min.)? @ -Not obtained What testing was considered but not performed? (CT, X-rays, U/S, labs)? Why? @ -None What meds were considered but not given? Why? @ -None Did you discuss the management of the patient with other professionals? @ -Yes, Dr. Mesa, on-call general surgery. He reviewed the patient's CT scan and gallbladder ultrasound himself. He is concerned about gallbladder inflammation. While it is likely unrelated to the recent colectomy, given the patient's recent surgery, he is not comfortable taking the case on himself and requested transfer back to [facility]. ED attending, Dr. Goncalves, spoke with Dr. Nagy at [facility], who is agreeable to transfer. Did you reconcile home meds? @ -No Was smoking cessation discussed for >3mins.? @ -No Was critical care preformed (if so, how long)? @ -No Were there social determinants of health that impacted care today? How? (Homelessness, low income, unemployed, alcoholism, drug addiction, transportat ion, low edu. Level, literacy, decrease access to med. care, penitentiary, rehab)? @ -No Was there de-escalation of care discussed even if they declined? (Discuss DNR or withdrawal of care, Hospice)? @ -No What co-morbidities impacted this encounter? (DM, HTN, Smoking, COPD, CAD, Cancer, CVA, Hep., AIDS, mental health diagnosis, sleep apnea, morbid obesity)? @ -Dementia, DVT, HTN Was patient admitted / discharged? @ -Lab work obtained revealing leukocytosis. Patient was febrile on arrival as well as tachycardiac. Given the concern for sepsis and because she does meet SIRS criteria, blood cultures were obtained and she was given a 2 L bolus of IV fluids and started on maintenance IV fluids at 130 mL/hour. Ofirmev was administered for the fever. She was also started on Zosyn. XR of the left humerus obtained as well due to prior PICC line infection. This revealed swelling without other acute process. CT scan of the chest/abdomen/pelvis obtained revealing gallbladder distention. US of the gallbladder was subsequently obtained. This revealed gallbladder hydrops with cholelithiasis. Case discussed with Dr. Mesa, general surgery. He reviewed all of the patient's imaging and is concerned for cholecystitis, especially in light of elevated LFTs. While Dr. Mesa does not necessarily believe this to be related to the recent colectomy, he is uncomfortable managing the patient who had recent surgery elsewhere. Dr. Nagy spoke with ED attending, Dr. Goncalves, and they are agreeable to transfer back to [facility]. This is an ED to ED transfer. Dr. Contreras is the accepting ED physician. Undiagnosed new problem with uncertain prognosis? @ -None Drug Therapy requiring intensive monitoring for toxicity (Heparin, Nitro, Insulin, Cardizem)? @ -None Were any procedures done? @ -None Diagnosis/symptom? @ -SIRS, cholelithiasis Acute, or Chronic, or Acute on Chronic? @ -Acute Uncomplicated (without systemic symptoms) or Complicated (systemic symptoms)? @ -Complicated Side effects of treatment? @ -None Exacerbation, Progression, or Severe Exacerbation] @ -Not applicable Poses a threat to life or bodily function? @ -Yes This case was discussed in detail with the attending ED physician, Dr. Goncalves. Presentation, findings, and treatment plan discussed in detail as well. - Lab Data Result diagrams: 01/25/23 11:19 01/25/23 11:19 Lab Results 01/25/23 01/25/23 01/25/23 Range/Units 11:19 11:19 11:19 WBC 19.2 H (3.8-10.6) k/uL RBC 3.83 (3.80-5.40) m/uL Hgb 11.2 L (11.4-16.0) gm/dL Hct 34.5 (34.0-46.0) % MCV 90.2 (80.0-100.0) fL MCH 29.3 (25.0-35.0) pg MCHC 32.5 (31.0-37.0) g/dL RDW 17.4 H (11.5-15.5) % Plt Count 290 (150-450) k/uL MPV 8.1 Neutrophils % 81 % Lymphocytes % 11 % Monocytes % 5 % Eosinophils % 2 % Basophils % 0 % Neutrophils # 15.5 H (1.3-7.7) k/uL Lymphocytes # 2.1 (1.0-4.8) k/uL Monocytes # 0.9 (0-1.0) k/uL Eosinophils # 0.4 (0-0.7) k/uL Basophils # 0.1 (0-0.2) k/uL Hypochromasia Moderate Anisocytosis Slight ESR 113 H (0-20) mm/hr Sodium 137 (137-145) mmol/L Potassium 4.9 (3.5-5.1) mmol/L Chloride 111 H (98-107) mmol/L Carbon Dioxide 17 L (22-30) mmol/L Anion Gap 9 mmol/L BUN 32 H (7-17) mg/dL Creatinine 0.57 (0.52-1.04) mg/dL Est GFR (CKD-EPI)AfAm >90 (>60 ml/min/1.73 sqM) Est GFR (CKD-EPI)NonAf 86 (>60 ml/min/1.73 sqM) Glucose 113 H (74-99) mg/dL Plasma Lactic Acid Braulio (0.7-2.0) mmol/L Calcium 9.4 (8.4-10.2) mg/dL Total Bilirubin 0.7 (0.2-1.3) mg/dL AST 68 H (14-36) U/L ALT 70 H (4-34) U/L Alkaline Phosphatase 364 H (38-126) U/L C-Reactive Protein 37.2 H (<1.0) mg/dL Total Protein 6.7 (6.3-8.2) g/dL Albumin 2.9 L (3.5-5.0) g/dL Urine Color Yellow Urine Appearance Clear (Clear) Urine pH 5.0 (5.0-8.0) Ur Specific [place] 1.021 (1.001-1.035) Urine Protein Trace H (Negative) Urine Glucose (UA) Negative (Negative) Urine Ketones Negative (Negative) Urine Blood Negative (Negative) Urine Nitrite Negative (Negative) Urine Bilirubin Negative (Negative) Urine Urobilinogen <2.0 (<2.0) mg/dL Ur Leukocyte Esterase Small H (Negative) Urine RBC 1 (0-5) /hpf Urine WBC 3 (0-5) /hpf Ur Squamous Epith Cells <1 (0-4) /hpf Urine Bacteria Rare H (None) /hpf Urine Mucus Rare H (None) /hpf Influenza Type A (PCR) (Not Detectd) Influenza Type B (PCR) (Not Detectd) RSV (PCR) (Not Detectd) SARS-CoV-2 (PCR) (Not Detectd) 01/25/23 01/25/23 Range/Units 11:19 17:10 WBC (3.8-10.6) k/uL RBC (3.80-5.40) m/uL Hgb (11.4-16.0) gm/dL Hct (34.0-46.0) % MCV (80.0-100.0) fL MCH (25.0-35.0) pg MCHC (31.0-37.0) g/dL RDW (11.5-15.5) % Plt Count (150-450) k/uL MPV Neutrophils % % Lymphocytes % % Monocytes % % Eosinophils % % Basophils % % Neutrophils # (1.3-7.7) k/uL Lymphocytes # (1.0-4.8) k/uL Monocytes # (0-1.0) k/uL Eosinophils # (0-0.7) k/uL Basophils # (0-0.2) k/uL Hypochromasia Anisocytosis ESR (0-20) mm/hr Sodium (137-145) mmol/L Potassium (3.5-5.1) mmol/L Chloride (98-107) mmol/L Carbon Dioxide (22-30) mmol/L Anion Gap mmol/L BUN (7-17) mg/dL Creatinine (0.52-1.04) mg/dL Est GFR (CKD-EPI)AfAm (>60 ml/min/1.73 sqM) Est GFR (CKD-EPI)NonAf (>60 ml/min/1.73 sqM) Glucose (74-99) mg/dL Plasma Lactic Acid Braulio 1.4 (0.7-2.0) mmol/L Calcium (8.4-10.2) mg/dL Total Bilirubin (0.2-1.3) mg/dL AST (14-36) U/L ALT (4-34) U/L Alkaline Phosphatase (38-126) U/L C-Reactive Protein (<1.0) mg/dL Total Protein (6.3-8.2) g/dL Albumin (3.5-5.0) g/dL Urine Color Urine Appearance (Clear) Urine pH (5.0-8.0) Ur Specific [place] (1.001-1.035) Urine Protein (Negative) Urine Glucose (UA) (Negative) Urine Ketones (Negative) Urine Blood (Negative) Urine Nitrite (Negative) Urine Bilirubin (Negative) Urine Urobilinogen (<2.0) mg/dL Ur Leukocyte Esterase (Negative) Urine RBC (0-5) /hpf Urine WBC (0-5) /hpf Ur Squamous Epith Cells (0-4) /hpf Urine Bacteria (None) /hpf Urine Mucus (None) /hpf Influenza Type A (PCR) Not Detected (Not Detectd) Influenza Type B (PCR) Not Detected (Not Detectd) RSV (PCR) Not Detected (Not Detectd) SARS-CoV-2 (PCR) Not Detected (Not Detectd) - Radiology Data Radiology results: report reviewed, image reviewed Disposition Clinical Impression: SIRS (systemic inflammatory response syndrome), Cholelithiasis Disposition: OTHER INSTITUTION NOT DEFINED Referrals: Jordyn Pizarro MD [Primary Care Provider] - 1-2 days - Out of Hospital Transfer - Req. Specs Out of Hospital Transfer - [facility]ed [facility]
[2023-01-25 11:37] LABS: Anisocytosis Slight; Basophils # (A) 0.1 k/uL (0-0.2); Basophils % (A) 0 %; Eosinophils # (A) 0.4 k/uL (0-0.7); Eosinophils % (A) 2 %; HCT 34.5 % (34.0-46.0); HGB 11.2 gm/dL (11.4-16.0); Hypochromasia Moderate; Lymphocytes # (A) 2.1 k/uL (1.0-4.8); Lymphocytes % (A) 11 %; MCH 29.3 pg (25.0-35.0); MCHC 32.5 g/dL (31.0-37.0); MCV 90.2 fL (80.0-100.0); Mean Platelet Volume 8.1; Monocytes # (A) 0.9 k/uL (0-1.0); Monocytes % (A) 5 %; Neutrophils # (A) 15.5 k/uL (1.3-7.7); Neutrophils % (A) 81 %; Platelet Count 290 k/uL (150-450); RBC 3.83 m/uL (3.80-5.40); RDW 17.4 % (11.5-15.5); WBC 19.2 k/uL (3.8-10.6)
[2023-01-25] MEDS ORDERED: SODIUM CHLORIDE 0.9% 1,000 ML IV SCH (11:45)
[2023-01-25] MEDS: SODIUM CHLORIDE 0.9% 500 ML 500 ML IV SCH ×4 (11:55→15:57)
[2023-01-25 12:21] LABS: ALT 70 U/L (4-34); AST 68 U/L (14-36); African American GFR (CKD) >90 (>60 ml/min/1.73 sqM); Albumin 2.9 g/dL (3.5-5.0); Alkaline Phosphatase 364 U/L (38-126); Anion Gap 9 mmol/L; Blood Urea Nitrogen 32 mg/dL (7-17); Calcium 9.4 mg/dL (8.4-10.2); Carbon Dioxide 17 mmol/L (22-30); Chloride 111 mmol/L (98-107); Glucose 113 mg/dL (74-99); Non-African American GFR(CKD) 86 (>60 ml/min/1.73 sqM); Potassium 4.9 mmol/L (3.5-5.1); Sodium 137 mmol/L (137-145); Total Bilirubin 0.7 mg/dL (0.2-1.3); Total Protein 6.7 g/dL (6.3-8.2)
--- NOTE | 2023-01-25 12:28 | XR ---
EXAMINATION TYPE: XR humerus LT DATE OF EXAM: 01/25/2023 12:21 PM INDICATION: Patient age:Female; 82 years old; Reason for study: Fever with PICC line; PHH. COMPARISON: None TECHNIQUE: The left humerus was examined in AP and lateral projections. FINDINGS: Left PICC line identified. No evidence of acute osseous pathology, joint dislocation. Soft tissue swelling of the arm. Joint space narrowing with subchondral cystic changes and spurring of the left shoulder. Mild AC joint arthropathy. No osseous erosions. The remaining portions of the visuali zed chest are unremarkable. IMPRESSION: 1. No acute osseous pathology. No osseous erosions. 2. Moderate osteophytic changes of the left shoulder. 3. Mild AC joint arthropathy. 4. Soft tissue swelling of the left arm.
[2023-01-25 12:36] LABS: Erythrocyte Sedimentation Rate 113 mm/hr (0-20)
[2023-01-25 13:23] LABS: C Reactive Protein 37.2 mg/dL (<1.0)
--- NOTE | 2023-01-25 14:11 | CT ---
EXAMINATION TYPE: CT ChestAbdPelvis w con CT DLP: 1174.3 mGycm, Automated exposure control for dose reduction was used. DATE OF EXAM: 01/25/2023 1:59 PM COMPARISON: CTA chest 03/04/2016 CLINICAL INDICATION:Female, 82 years old with history of Fever, abdominal pain, recent colectomy; PHH , Fever, abdominal pain, recent colectomy. Technique: Multiple axial images of the chest, abdomen, and pelvis were obtained following the intrav enous administration of 100 mL Isovue-300. Two-dimensional coronal and sagittal reconstructions were obtained. Findings: CHEST: LUNGS/ PLEURA: No pleural effusion, pneumothorax, or focal consolidation. Scattered regions of atelec tasis along the right major fissure. AIRWAY: Patent and unremarkable.. HEART: Size within normal limits. No pericardial effusion. Moderate coronary arterial calcifications. MEDIASTINUM: No evidence of adenopathy. VASCULATURE: No aortic aneurysm. Left PICC line terminates in the superior cavoatrial junction. Athe rosclerotic calcification of the aorta. MUSCULOSKELETAL: No acute osseous abnormalities. SOFT TISSUES/LYMPH NODES: Unremarkable. LOWER NECK: No significant findings. ABDOMEN: ABDOMEN LIVER: Stable lateral right hepatic lobe 2.1 cm cyst. GALLBLADDER AND BILE DUCTS: Mildly distended gallbladder. No biliary duct dilatation. PANCREAS: Unremarkable. SPLEEN: Unremarkable. ADRENAL GLANDS: Unremarkable. KIDNEYS AND URETERS: No evidence of hydronephrosis or renal calculus. The kidneys enhance symmetrical ly. Regions of cortical thinning involving the left kidney from prior injury. Bilateral renal cysts. Largest within the left kidney measures up to 2.4 cm. PELVIS BLADDER: Moderately distended. REPRODUCTIVE: The uterus is surgically absent. ABDOMEN & PELVIS STOMACH AND BOWEL: Small to moderate size hiatal hernia. Right lower quadrant ostomy. Postsurgical ch anges from colectomy. No evidence of bowel obstruction. Calcification left lower quadrant abutting th e anastomotic site. PERITONEUM: No evidence of pneumoperitoneum or free fluid. Stranding identified within the mesentery likely related to postsurgical changes. No organized fluid collection. VASCULATURE: Moderate atherosclerotic calcifications are present throughout the abdominal aorta and i ts branches. No abdominal aortic aneurysm. Pelvic phleboliths. MUSCULOSKELETAL: No acute osseous abnormalities LYMPH NODES: No gross evidence for lymphadenopathy. SOFT TISSUE/ABDOMINAL WALL: Postsurgical of the anterior abdominal wall. No organized fluid collectio n. IMPRESSION: 1. Postsurgical changes from colectomy with right lower quadrant ostomy. No organized fluid collecti on to suggest abscess. 2. Mild distention of the gallbladder. Consider further evaluation with ultrasound if there is dewey rn for acute process. 3. Small to moderate-sized hiatal hernia. 4. No acute thoracic process.
[2023-01-25 14:31] VITALS: TEMP 98.7
[2023-01-25 14:48] LABS: Appearance,Urine Clear (Clear); Bacteria,Urine Rare /hpf; Bilirubin,Urine Negative (Negative); Blood,Urine Negative (Negative); Color,Urine Yellow; Glucose,Urine (UA) Negative (Negative); Ketones,Urine Negative (Negative); Leukocyte Esterase,Urine Small (Negative); Mucus,Urine Rare /hpf; Nitrite,Urine Negative (Negative); Protein,Urine Trace (Negative); RBC,Urine 1 /hpf (0-5); Specific Gravity,Urine 1.021 (1.001-1.035); Squamous Epithelial Cell,Urine <1 /hpf (0-4); Urobilinogen,Urine <2.0 mg/dL (<2.0); WBC,Urine 3 /hpf (0-5)
--- NOTE | 2023-01-25 15:11 | US ---
EXAMINATION TYPE: US gallbladder DATE OF EXAM: 01/25/2023 COMPARISON: CT 2022 CLINICAL INDICATION: Female, 82 years old with history of Gallbladder distention on CT scan; TECHNIQUE: Multiple sonographic images of the right upper quadrant are obtained. FINDINGS: EXAM MEASUREMENTS: Liver Length: 16.2 cm Gallbladder Wall: 0.2 cm CBD: 0.3 cm Right Kidney: 10.5 x 3.8 x 4.6 cm Pancreas: obscured by overlying midline bowel gas Liver: 2.5 x 2.0 x 2.4cm cyst right lobe Gallbladder: hydropic, full of stones Evidence for sonographic Carlin's sign: n/a CBD: visualized portions wnl, limited by overlying bowel gas Right Kidney: 1.2 x 1.2 x 1.1cm cortical cyst Pancreas is obscured by overlying bowel gas. Simple cyst within the right hepatic lobe measuring 2.5 cm. Gallbladder is hydropic and full of gallstones. No wall thickening or pericholecystic fluid ident ified. Visualized portions of the common bile duct within normal limits. Right kidney is unremarkable without evidence of hydronephrosis, nephrolithiasis, solid mass. Simple cortical cyst measuring 1.2 cm identified. IMPRESSION: Hydropic gallbladder which is full gallstones without wall thickening or pericholecystic fluid. No ov ert ultrasound evidence for acute cholecystitis. If there is continued clinical concern, consider [facility] medicine HIDA scan for further evaluation.
[2023-01-25] MEDS ORDERED: PIPERACILLIN-TAZOBACTAM 3.375 GM in SODIUM CHLORIDE 0.9% 100 ML IVPB SCH (16:00)
[2023-01-25 19:58] VITALS: BP 154/84; PULSE 108; RESP 16
== END 2023-01-25 20:44 | disposition other institution (70) ==
LOC: EC 10:08
DX: K80.20 Calculus of gallbladder without cholecystitis without obstruction (principal); K44.9 Diaphragmatic hernia without obstruction or gangrene; R65.10 Systemic inflammatory response syndrome (SIRS) of non-infectious origin without acute organ dysfunction; R00.0 Tachycardia, unspecified; J45.909 Unspecified asthma, uncomplicated; I11.0 Hypertensive heart disease with heart failure; Z79.899 Other long term (current) drug therapy; Z79.51 Long term (current) use of inhaled steroids; Z88.6 Allergy status to analgesic agent; Z88.8 Allergy status to other drugs, medicaments and biological substances; Z20.822 Contact with and (suspected) exposure to COVID-19; Z93.3 Colostomy status; Z79.01 Long term (current) use of anticoagulants; Z90.49 Acquired absence of other specified parts of digestive tract
CPT/HCPCS: 36415; 93005; 80053; 85652; 83605; 85025; 86140; 81001; 87040; 87636; 73060; 76705; 71260; 74177; 99285; 96365; 96367; 96366 ×2; 96375; 96361; J2543; J2270; J0131; Q9967

== ENCOUNTER 2023-02-18 03:57 | Emergency (ER) | payer MEDICARE ==
[2023-02-18 04:26] VITALS: TEMP 98.9
[2023-02-18 04:55] LABS: Anisocytosis Slight; Basophils % (A) 0 %; Eosinophils # (A) 0.6 k/uL (0-0.7); Eosinophils % (A) 4 %; HCT 34.9 % (34.0-46.0); HGB 11.2 gm/dL (11.4-16.0); Hypochromasia Slight; Lymphocytes # (A) 1.6 k/uL (1.0-4.8); Lymphocytes % (A) 12 %; MCH 27.9 pg (25.0-35.0); MCHC 32.2 g/dL (31.0-37.0); MCV 86.7 fL (80.0-100.0); Mean Platelet Volume 8.1; Monocytes # (A) 0.4 k/uL (0-1.0); Monocytes % (A) 3 %; Neutrophils # (A) 11.5 k/uL (1.3-7.7); Neutrophils % (A) 81 %; Platelet Count 271 k/uL (150-450); Poikilocytosis Slight; RBC 4.02 m/uL (3.80-5.40); RDW 18.2 % (11.5-15.5); WBC 14.2 k/uL (3.8-10.6)
[2023-02-18 05:50] LABS: ALT 39 U/L (4-34); AST 31 U/L (14-36); African American GFR (CKD) >90 (>60 ml/min/1.73 sqM); Albumin 3.3 g/dL (3.5-5.0); Alkaline Phosphatase 231 U/L (38-126); Anion Gap 11 mmol/L; Blood Urea Nitrogen 13 mg/dL (7-17); Calcium 9.2 mg/dL (8.4-10.2); Carbon Dioxide 25 mmol/L (22-30); Chloride 97 mmol/L (98-107); Glucose 103 mg/dL (74-99); Lipase 268 U/L (23-300); Non-African American GFR(CKD) >90 (>60 ml/min/1.73 sqM); Potassium 3.6 mmol/L (3.5-5.1); Sodium 133 mmol/L (137-145); Total Bilirubin 0.7 mg/dL (0.2-1.3); Total Protein 6.7 g/dL (6.3-8.2)
[2023-02-18] MEDS ORDERED: PIPERACILLIN-TAZOBACTAM 3.375 GM in SODIUM CHLORIDE 0.9% 100 ML IVPB STA (06:58)
--- NOTE | 2023-02-18 06:59 | ED ---
Abdominal Pain HPI - General Chief Complaint: Abdominal Pain Stated Complaint: Abdominal Pain Time Seen by Provider: 02/18/23 04:05 Source: EMS, Caregiver Mode of arrival: EMS - History of Present Illness Initial Comments: 82-year-old female with past medical history of bowel resection, colostomy, recent PEG tube placement who presents emergency Department with abdominal pain. Patient arrives as a transfer from [facility]. They report that the patient has had pain around her PEG tube site. She has been agitated and pulling at the tube. There is concern for dislodgment. They state that there is been significant leaking of fluid from around the tube. They also have not been getting any residuals. Facility cannot explain exactly how long they feel the tube has been dislodged. She recently had elevation in her heart rate which prompted the ER transfer. Patient arrives and cannot provide many details in regards to her medical history. No reported nausea. No changes in the patient's bowel or bladder habits reported. No fevers. PEG tube was placed at [facility]. She does have extensive history of abdominal surgeries. She also recently had a PICC line infection which subsequently led to the G-tube placement. No other alleviating, precipitating or modifying factors - Related Data Home Medications Medication Instructions Recorded Confirmed Albuterol Sulfate [Proair Hfa] 1 - 2 puff INHALATION RT-QID PRN 04/03/16 01/25/23 Fluticasone Propion/Salmeterol 1 puff PO RT-BID 08/26/19 01/25/23 [Wixela 100-50 Inhub] Acetaminophen Tab [Tylenol] 650 mg PO Q6H PRN 01/25/23 01/25/23 Acetaminophen [Tylenol] 650 mg PO BID 01/25/23 01/25/23 Albuterol Nebulized [Ventolin 2.5 mg INHALATION RT-Q4H PRN 01/25/23 01/25/23 Nebulized] Collagenase [Santyl Ointment] 1 applic TOPICAL DAILY PRN 01/25/23 01/25/23 Collagenase [Santyl Ointment] 1 applic TOPICAL HS 01/25/23 01/25/23 Ensure 237 ml PO DAILY 01/25/23 01/25/23 Ferrous Sulfate Oral Elixir 300 mg PO DAILY 01/25/23 01/25/23 [Feosol Liquid] Fluconazole [Diflucan] 100 mg PO DAILY 01/25/23 01/25/23 Hydrophilic Cream [Triad (Kerodex 1 applic TOPICAL DAILY PRN 01/25/23 01/25/23 geq)] Hydrophilic Cream [Triad (Kerodex 1 applic TOPICAL HS 01/25/23 01/25/23 geq)] Metoprolol Tartrate [Lopressor] 100 mg PO BID 01/25/23 01/25/23 Omeprazole [PriLOSEC] 20 mg PO DAILY@0600 01/25/23 01/25/23 Ondansetron Odt [Zofran Odt] 4 mg PO Q8H PRN 01/25/23 01/25/23 Rivaroxaban [Xarelto] 10 mg PO BID 01/25/23 01/25/23 Tpn 1 dose IV DIRECTED 01/25/23 01/25/23 droNABinol [Marinol] 2.5 mg PO DIRECTED 01/25/23 01/25/23 predniSONE 7.5 mg PO DAILY 01/25/23 01/25/23 traMADol HCl [Ultram] 50 mg PO Q6H PRN 01/25/23 01/25/23 Allergies Allergy/AdvReac Type Severity Reaction Status Date / Time aspirin Allergy Wheezing Verified 02/18/23 04:11 methocarbamol [From Robaxin] Allergy Unknown Verified 02/18/23 04:11 Review of Systems ROS Statement: Those systems with pertinent positive or pertinent negative responses have been documented in the HPI. ROS Other: All systems not noted in ROS Statement are negative. Past Medical History Past Medical History: Asthma, Heart Failure, Hyperlipidemia, Hypertension Additional Past Medical History / Comment(s): back and neck pain History of Any Multi-Drug Resistant Organisms: None Reported Past Surgical History: Hernia Repair, Hysterectomy, Tonsillectomy Past Psychological History: No Psychological Hx Reported Smoking Status: Never smoker Past Alcohol Use History: None Reported Past Drug Use History: None Reported General Exam General appearance: alert, in no apparent distress Head exam: Present: atraumatic, normocephalic, normal inspection ENT exam: Present: mucous membranes dry Neck exam: Present: normal inspection. Absent: tenderness, meningismus, lymphadenopathy Cardiovascular Exam: Present: tachycardia GI/Abdominal exam: Present: tenderness (In the right upper quadrant around the PEG tube site. Some surrounding draining. The surrounding tissue is indurated with fluctuance), other (Colostomy of lower quadrant) Extremities exam: Present: normal inspection, full ROM, normal capillary refill. Absent: tenderness, pedal edema, joint swelling, calf tenderness Neurological exam: Present: alert Psychiatric exam: Present: flat affect Course Vital Signs 02/18/23 02/18/23 02/18/23 04:01 08:37 09:00 Temperature 98.9 F Pulse Rate 121 H 125 H 78 Respiratory 15 18 18 Rate Blood Pressure 118/84 117/91 117/91 O2 Sat by Pulse 97 95 97 Oximetry 02/18/23 02/18/23 02/18/23 09:30 10:00 10:30 Temperature Pulse Rate 76 78 75 Respiratory 16 16 18 Rate Blood Pressure 134/80 130/81 125/73 O2 Sat by Pulse 96 95 95 Oximetry 02/18/23 11:00 Temperature Pulse Rate 74 Respiratory 18 Rate Blood Pressure 118/66 O2 Sat by Pulse 96 Oximetry Medical Decision Making - Medical Decision Making Was pt. sent in by a medical professional or institution (, PA, CARD PROCESSING CLERK, urgent care, hospital, or shelter...) When possible be specific @ -[facility] Did you speak to anyone other than the patient for history (EMS, parent, family, police, friend...)? What history was obtained from this source @ -EMS and son Did you review nursing and triage notes (agree or disagree)? Why? @ -I reviewed and agree with nursing and triage notes Were old charts reviewed (outside hosp., previous admission, EMS record, old EKG, old radiological studies, urgent care reports/EKG's, shelter records)? Report findings @ -Old charts reviewed - last ED with transfer to [facility] Differential Diagnosis (chest pain, altered mental status, abdominal pain women, abdominal pain men, vaginal bleeding, weakness, fever, dyspnea, syncope, headache, dizziness, GI bleed, back pain, seizure, CVA, palpatations, mental health, musculoskeletal)? @ -Differential Abdominal Pain Women: Appendicitis, Cholecystitis, diverticulosis, ischemic bowel, pancreatitis, hepatitis, UTI, gastroenteritis, AAA, incarcerated hernia, bowel obstruction, constipation, inflammatory bowel, hepatitis, peptic ulcer disease, splenic infarction, perforated viscus, vulvitis, ovarian torsion, PID, kidney stone, placenta abruption, this is not meant to be an all-inclusive list EKG interpreted by me (3pts min.). @ -Not done X-rays interpreted by me (1pt min.). @ -None done CT interpreted by me (1pt min.). @ -Yes and demonstrates misplaced peg tube U/S interpreted by me (1pt. min.). @ -None done What testing was considered but not performed or refused? (CT, X-rays, U/S, labs)? Why? @ -None What meds were considered but not given or refused? Why? @ -None Did you discuss the management of the patient with other professionals (professionals i.e. , PA, CARD PROCESSING CLERK, lab, RT, psych nurse, psychotherapist social worker, mason tender, teacher, access control officer, telephonic case manager)? Give summary @ -Spoke with [facility] transfer team Was smoking cessation discussed for >3mins.? @ -No Was critical care preformed (if so, how long)? @ -No Were there social determinants of health that impacted care today? How? (Homelessness, low income, unemployed, alcoholism, drug addiction, transportation, low edu. Level, literacy, decrease access to med. care, halfway, rehab)? @ -Patient resides in rehab Was there de-escalation of care discussed even if they declined (Discuss DNR or withdrawal of care, Hospice)? DNR status @ -No What co-morbidities impacted this encounter? (DM, HTN, Smoking, COPD, CAD, Cancer, CVA, ARF, Chemo, Hep., AIDS, mental health diagnosis, sleep apnea, morbid obesity)? @ -Diverticulitis, protein calorie malnutrition Was patient admitted / discharged? Hospital course, mention meds given and route, prescriptions, significant lab abnormalities, going to OR and other pertinent info. @ -Upon arrival patient is placed in room 16. Thorough history and physical exam was performed. IV access is established and laboratories is her conducted. Patient was given pain and nausea medications. There were traces her condu cted. White count elevated at 14.4. CT is performed and demonstrates dislodged PEG tube. At this time requires evaluation by surgery as PEG tube was recently placed in the past week. Blood culture is obtained and the patient is given Zosyn. Did recommend transfer to [facility] for which the son was agreeable. Did call the transfer line. Awaiting callback. Case will be signed out to Dr. Hughes. Patient eventually accepted by Dr. Wall. Undiagnosed new problem with uncertain prognosis? @ -yes Drug Therapy requiring intensive monitoring for toxicity (Heparin, Nitro, Insulin, Cardizem)? @ -No Were any procedures done? @ -No Diagnosis/symptom? @ -dislodged peg tube, tachycardia, sirs 2/4 with sepsis Acute, or Chronic, or Acute on Chronic? @ -acute Uncomplicated (without systemic symptoms) or Complicated (systemic symptoms)? @ -complicated Side effects of treatment? @ -No Exacerbation, Progression, or Severe Exacerbation? @ -No Poses a threat to life or bodily function? How? (Chest pain, [place], HI, pneumonia, PE, COPD, DKA, ARF, appy, cholecystitis, CVA, Diverticulitis, Homicidal, Suicidal, threat to staff... and all critical care pts) @ -yes - patient possibly septic due to misplaced tube - Lab Data Result diagrams: 02/18/23 04:30 02/18/23 05:08 Lab Results 02/18/23 02/18/23 02/18/23 Range/Units 04:30 04:30 05:08 WBC 14.2 H (3.8-10.6) k/uL RBC 4.02 (3.80-5.40) m/uL Hgb 11.2 L (11.4-16.0) gm/dL Hct 34.9 (34.0-46.0) % MCV 86.7 (80.0-100.0) fL MCH 27.9 (25.0-35.0) pg MCHC 32.2 (31.0-37.0) g/dL RDW 18.2 H (11.5-15.5) % Plt Count 271 (150-450) k/uL MPV 8.1 Neutrophils % 81 % Lymphocytes % 12 % Monocytes % 3 % Eosinophils % 4 % Basophils % 0 % Neutrophils # 11.5 H (1.3-7.7) k/uL Lymphocytes # 1.6 (1.0-4.8) k/uL Monocytes # 0.4 (0-1.0) k/uL Eosinophils # 0.6 (0-0.7) k/uL Basophils # 0.0 (0-0.2) k/uL Hypochromasia Slight Poikilocytosis Slight Anisocytosis Slight Sodium 133 L (137-145) mmol/L Potassium 3.6 (3.5-5.1) mmol/L Chloride 97 L (98-107) mmol/L Carbon Dioxide 25 (22-30) mmol/L Anion Gap 11 mmol/L BUN 13 (7-17) mg/dL Creatinine 0.44 L (0.52-1.04) mg/dL Est GFR (CKD-EPI)AfAm >90 (>60 ml/min/1.73 sqM) Est GFR (CKD-EPI)NonAf >90 (>60 ml/min/1.73 sqM) Glucose 103 H (74-99) mg/dL Plasma Lactic Acid Braulio 1.3 (0.7-2.0) mmol/L Calcium 9.2 (8.4-10.2) mg/dL Total Bilirubin 0.7 (0.2-1.3) mg/dL AST 31 (14-36) U/L ALT 39 H (4-34) U/L Alkaline Phosphatase 231 H (38-126) U/L Total Protein 6.7 (6.3-8.2) g/dL Albumin 3.3 L (3.5-5.0) g/dL Lipase 268 (23-300) U/L Disposition Clinical Impression: SIRS (systemic inflammatory response syndrome), PEG tube malfunction, Abdominal pain Disposition: OTHER INSTITUTION NOT DEFINED Condition: Serious Is patient prescribed a controlled substance at d/c from ED?: No Referrals: Jordyn Pizarro MD [Primary Care Provider] - 1-2 days - Out of Hospital Transfer - Req. Specs Out of Hospital Transfer - Requested Specifics: Other Non-Acute ([facility])
[2023-02-18] MEDS ORDERED: SODIUM CHLORIDE 0.9% 1,000 ML IV SCH (07:00)
[2023-02-18] MEDS ORDERED: METOCLOPRAMIDE 5 MG/ML 2 ML VIAL IVP STA (07:45)
[2023-02-18] MEDS ORDERED: MORPHINE SULFATE 4 MG/ML SYRINGE IVP STA (07:54)
--- NOTE | 2023-02-18 07:59 | CT ---
EXAMINATION TYPE: CT abdomen pelvis w con CT DLP: 635.6 mGycm, Automated exposure control for dose reduction was used. DATE OF EXAM: 02/18/2023 6:19 AM COMPARISON: CT chest abd pelvis 01/25/2023 CLINICAL INDICATION:Female, 82 years old with history of abdominal pain, recent peg; TECHNIQUE: Axial CT of the abdomen and pelvis. Sagittal and coronal reformats were created on a enymotion workstation. Contrast used: No data provided, (none if empty) Oral contrast used: (none if empty) FINDINGS: LOWER CHEST: Mild scarring or atelectasis in the lower lobes. Some linear atelectasis or scar in the right middle lobe. Small patchy ground glass subpleural opacities noted in the right upper lobe. No p leural effusion. The heart is moderately enlarged with moderate coronary arterial calcifications. Mod erate sized hiatal hernia ABDOMEN LIVER: Stable 2.1 cm hypodensity in the right hepatic lobe, likely cyst. GALLBLADDER AND BILE DUCTS: Gallbladder appears somewhat elongated and hydropic, similar to the prior . No definite surrounding acute inflammation. Somewhat wavy/lobular appearance of the gallbladder wal l. No definite calcified gallstones. Biliary tree is nondilated. PANCREAS: Unremarkable. SPLEEN: Unremarkable. ADRENAL GLANDS: Unremarkable. KIDNEYS AND URETERS: Kidneys enhance symmetrically. Stable appearing bilateral renal hypodensities, l ikely cysts. No evidence of hydronephrosis. PELVIS BLADDER: Unremarkable REPRODUCTIVE: Status post hysterectomy. ABDOMEN & PELVIS STOMACH AND BOWEL: Nondilated stomach and small bowel. Right lower quadrant ileostomy again seen with out evidence of obstruction. Changes of subtotal colectomy rectal stump. Postoperative changes/scarri ng in the anterior abdominal wall and mesentery. No evidence of bowel obstruction. PERITONEUM/RETROPERITONEUM: No evidence of pneumoperitoneum or free fluid. VASCULATURE: Diffuse atherosclerotic calcification of the aorta and branches. No evidence of AAA. No high-grade stenosis. MUSCULOSKELETAL: Mild/moderate diffuse degenerative changes of the visualized spine. No evidence of a n acute bony abnormality. LYMPH NODES: No gross evidence for lymphadenopathy. SOFT TISSUE/ABDOMINAL WALL: A PEG tube is seen in abnormal position, with the tip and balloon located in the anterior abdominal wall soft tissues at the level of the distal stomach. There is surrounding haziness of the subcutaneous fat, and a small to moderate amount of subcutaneous emphysema extending along the right anterolateral abdominal wall. No discrete focal fluid collection is seen. IMPRESSION: 1. PEG tube in abnormal position, with the tip and balloon located in the anterior abdominal wall so ft tissues at the level of the distal stomach. There is surrounding haziness of the subcutaneous fat, and a small to moderate amount of subcutaneous emphysema extending along the right anterolateral abd ominal wall. 2. Couple small peripheral groundglass opacities in the right upper lobe of the lung, correlate clin ically for infectious or inflammatory process. 3. Other chronic and likely incidental findings, as described above.
[2023-02-18 08:45] VITALS: RESP 18
[2023-02-18 11:28] VITALS: BP 118/66; PULSE 74
== END 2023-02-18 11:42 | disposition other institution (70) ==
LOC: EC 03:57
DX: K94.23 Gastrostomy malfunction (principal); R65.10 Systemic inflammatory response syndrome (SIRS) of non-infectious origin without acute organ dysfunction; I11.0 Hypertensive heart disease with heart failure; I50.9 Heart failure, unspecified; J45.909 Unspecified asthma, uncomplicated; Z79.01 Long term (current) use of anticoagulants; Z79.51 Long term (current) use of inhaled steroids; Z79.52 Long term (current) use of systemic steroids; Z79.899 Other long term (current) drug therapy; Z88.6 Allergy status to analgesic agent; Z88.8 Allergy status to other drugs, medicaments and biological substances
CPT/HCPCS: 36415; 80053; 83605; 83690; 85025; 87040; 74177; 99285; 96365; 96366; 96375 ×2; 96361; J2543; J2270; J2765; Q9967